=== PATIENT | male | born 1935 | race Caucasian/White ===

== ENCOUNTER 2017-11-06 13:52 | Emergency (ER) | payer OTHER ==
--- NOTE | 2017-11-06 14:40 | EDPHY ---
H & P Time Seen by Provider: 11/06/17 14:39 HPI/ROS: Chief complaint. Left hip pain HPI. 82-year-old male trip and fall 1 week ago. He was walking on the street tripped over the curb. Struck his left face and his left hip and leg. They were concerned about concussion but the patient has done well no headache change in his vision. However he has increasing pain to the left hip. He tells me that they told him x-rays were normal. He has new bruising to the inner left thigh. He has been using a walker and is able to ambulate ambulate but it hurts more when he gets up and walk. Also the pain is now somewhat down in the left thigh below the hip. Increased pain with standing and range of motion. ROS Constitutional. no fever/chills, no weakness Eyes. no problems with vision ENT. no sore throat, no nasal drainage Cardiovascular. no chest pain Respiratory. no shortness of breath, no cough Abdominal. no abdominal pain, no nausea/vomiting, no diarrhea . no problems urinating MS. Left hip pain. Left thigh pain. Skin. Bruising inner left thigh Lymph. no swollen glands Neuro. no headache, no dizziness, no difficulty walking or with speech Past Medical/Surgical History: Past medical history hypertension Social History: , nonsmoker, no alcohol Smoking Status: Never smoked Physical Exam: General Appearance: Alert pleasant well-developed male mild distress vital signs are stable Eyes: Pupils equal and round no pallor or injection. ENT, Mouth: Mucous membranes are moist. Respiratory: There are no retractions, lungs are clear to auscultation. Cardiovascular: Regular rate and rhythm. Gastrointestinal: Abdomen is soft and nontender, no masses, bowel sounds normal. Neurological: Awake and alert, sensory and motor exams grossly normal. Skin: Warm and dry, no rashes. Musculoskeletal: Neck is supple nontender. Extremities tenderness to palpation left hip and lateral thigh with some evidence of palpation for hematoma in the lateral thigh. He has ecchymosis on the medial aspect of his left thigh. No knee discomfort or findings Psychiatric: Patient is oriented X 3, there is no agitation. Constitutional: Initial Vital Signs Temperature (C) 36.3 C 11/06/17 13:57 Heart Rate 90 11/06/17 13:57 Respiratory Rate 17 11/06/17 13:57 Blood Pressure 164/86 H 11/06/17 13:57 O2 Sat (%) 93 11/06/17 13:57 O2 Delivery Mode Room Air Allergies/Adverse Reactions: No Known Allergies Allergy (Unverified 11/06/17 13:56) Home Medications: Medication Instructions Recorded Amlodipine Besylate 11/06/17 Crestor 20mg (*) 11/06/17 Hydrocodone/APAP 5/325 [[place] 1 each PO Q4-6PRN PRN #10 tab 11/06/17 5/325 (*)] Lisinopril 11/06/17 Metoprolol Succinate 11/06/17 Medical Decision Making - Diagnostics Imaging Results: X-ray left femur interpreted by me is negative ED Course/Re-evaluation: Re-evaluation at 3:20 p.m.. Patient is stable. Patient, his , and I discussed imaging study results, treatment plan including criteria for return importance of follow-up further evaluation. He expresses understanding and agreement Differential Diagnosis: I considered fracture dislocation. I suspect that this is contusion with hematoma in the quadriceps muscle. Departure - Departure Disposition: Home, Routine, Self-Care Clinical Impression: Contusion of leg, left Qualifiers: Encounter type: subsequent encounter Qualified Code(s): S80.12XD - Contusion of left lower leg, subsequent encounter Condition: Good Instructions: Contusion in Adults (ED) Additional Instructions: Easy activity . Ibuprofen 600 mg every 6 hr for discomfort. Hydrocodone in addition if necessary for pain Return for worsening symptoms. Recheck in 3-4 days if not improving Referrals: SURAJ,E [Other] - As per Instructions Prescriptions: Hydrocodone/APAP 5/325 [[place] 5/325 (*)] 1 each PO Q4-6PRN PRN #10 tab PRN Reason: Pain, Moderate
[2017-11-06 15:41] VITALS: BP 168/72
== END 2017-11-06 15:41 | disposition home or self-care (01) ==
DX: S80.12XA Contusion of left lower leg, initial encounter (principal); I10 Essential (primary) hypertension; W10.1XXA Fall (on)(from) sidewalk curb, initial encounter; Y92.410 Unspecified street and highway as the place of occurrence of the external cause; Y99.8 Other external cause status; Y93.01 Activity, walking, marching and hiking